=== PATIENT | female | born 1955 | race Two or more races ===

== ENCOUNTER 2017-11-05 12:30 | Inpatient (IN) | payer OTHER ==
[~2017-11-05] VITALS: Ht 165.1 cm; Wt 78.5 kg
[2017-11-05] MEDS ORDERED: HYZAAR 100-12.1 EACH PO (14:22)
[2017-11-05] MEDS ORDERED: PROVENTIL HFA6.7 GM IH (14:23)
== END 2017-11-21 14:21 | disposition left against medical advice (07) | DRG 329 ==
LOC: SURH 11-12 07:00 → O/R 11-12 07:18 → SURH 11-12 12:30 → O/R 11-13 15:52 → SURH 11-13 16:22
PROVIDERS: Surgery; Urology
PROC: 0DJD8ZZ Inspection of Lower Intestinal Tract, Via Natural or Artificial Opening Endoscopic (ICD-10-PCS; 2017-11-12)
PROC: 0DTE4ZZ Resection of Large Intestine, Percutaneous Endoscopic Approach (ICD-10-PCS; principal; 2017-11-12 07:00)
PROC: 0DT84ZZ Resection of Small Intestine, Percutaneous Endoscopic Approach (ICD-10-PCS; 2017-11-12 07:00)
PROC: 3E0F7GC Introduction of Other Therapeutic Substance into Respiratory Tract, Via Natural or Artificial Opening (ICD-10-PCS; 2017-11-15)
PROC: BW25Y0Z Computerized Tomography (CT Scan) of Chest, Abdomen and Pelvis using Other Contrast, Unenhanced and Enhanced (ICD-10-PCS; 2017-11-18)
PROC: 4A033R1 Measurement of Arterial Saturation, Peripheral, Percutaneous Approach (ICD-10-PCS; 2017-11-19)
PROC: 8E0ZXY6 Isolation (ICD-10-PCS; 2017-11-20)
DX: K57.20 Diverticulitis of large intestine with perforation and abscess without bleeding (principal); J10.08 Influenza due to other identified influenza virus with other specified pneumonia; J18.8 Other pneumonia, unspecified organism; N82.3 Fistula of vagina to large intestine; J95.89 Other postprocedural complications and disorders of respiratory system, not elsewhere classified; J98.11 Atelectasis; J44.1 Chronic obstructive pulmonary disease with (acute) exacerbation; B37.0 Candidal stomatitis; B37.49 Other urogenital candidiasis; I10 Essential (primary) hypertension; D64.89 Other specified anemias; F17.210 Nicotine dependence, cigarettes, uncomplicated; R09.02 Hypoxemia